=== PATIENT | male | born 1990 | race Caucasian/White ===

== ENCOUNTER 2017-03-26 19:05 | Emergency (ER) | payer OTHER ==
[~2017-03-26] VITALS: Ht 167.6 cm; Wt 76.9 kg
[~2017-03-26 19:05] MED LIST: INSDGI SQ; LISI-729 PO; NVLGI SQ
[2017-03-26 19:14] VITALS: BP 134/89; TEMP 36.9; Ht 167.6 cm; Wt 76.9 kg
[2017-03-26] MEDS ORDERED: INSU100I SC (19:36)
[2017-03-26] MEDS ORDERED: INSDGI SC (19:36)
[2017-03-26] MEDS ORDERED: XYLOCAINE 1%/SOD BICARB 20 ML VIAL INFIL STA (19:43)
[2017-03-26] MEDS ORDERED: BUPIVACAINE 0.5 % 5 MG/1 ML MPF 30ML VIAL INFIL STA (19:43)
--- NOTE | 2017-03-26 20:16 | DIAGNOSTIC IMAGING REPORT ---
RIGHT THIRD FINGER 3 VIEWS CLINICAL HISTORY: Right third finger injury. FINDINGS: 3 views of the right third finger are obtained. No prior studies are available for comparison at the time of dictation. The skeletal structures are well mineralized. There is a comminuted and nondistracted fracture through the distal shaft and tuft of the third distal phalanx with overlying soft tissue edema. There may also be a nondistracted avulsion fracture at the base of the third distal phalanx. This is only seen on the frontal view. The third metacarpophalangeal and interphalangeal joints appear maintained. IMPRESSION: 1. There is a comminuted and nondistracted fracture involving the distal shaft and tuft of the third distal phalanx. 2. Question an additional nondistracted fracture at the base of the third distal phalanx. Electronically signed by: Juan Carlos Silva M.D. 03/26/2017 8:15 PM Dictated Date/Time: 03/26/2017 8:13 PM
[2017-03-26] MEDS ORDERED: OXYC1TAB3 PO (20:57)
[2017-03-26] MEDS ORDERED: CEPH500C PO (20:57)
[2017-03-26] MEDS ORDERED: CEPHALEXIN 500MG HOME PACK 1 EA BTL PO STA (20:57)
[2017-03-26] MEDS ORDERED: OXYCODONE IR HOME PACK PO STA (20:57)
--- NOTE | 2017-03-26 20:59 | EMERGENCY ROOM VISIT NOTE ---
ED Visit Note First contact with patient: 19:22 Chief Complaint: "Smashed/ripped middle finger on right hand". History of Present Illness: This patient is a 27-year-old male who presents to the Emergency Department via private vehicle for evaluation of their right third digit laceration/injury. Patient sustained the laceration while operating a coffee grinder earlier today around 6:45 PM at home. They report a moderate amount of bleeding initially. They admit to any numbness or tingling into the distal extremity. They report deny decreased range of motion of the affected digit. T \\ Patient rates his current discomfort as a 9/10. Patient's Tetanus status is believed to be currently up-to-date. Medications: As noted below Allergies: None PMH: No pertinent SHx: Patient lives locally ROS: All pertinent positive and negative review of systems are appropriately documented in the History of Present Illness. Physical Exam: VITAL SIGNS - Vital signs and nursing notes were reviewed. Stable. GENERAL -27-year-old male appearing his stated age who is in no acute distress. Communicates well with provider and answers questions appropriately. SKIN - There is an avulsion of the skin at the posterior lateral aspect of the cuticle/nail region of the right third digit. No deep laceration noted. No open fracture evident. The edges gape apart with traction. No foreign bodies appreciated. Upon further examination there are no deep structures including vessel, tendon, or bony structures appreciated. There is no active bleeding noted. MUSCULOSKELETAL - Laceration as described above. +5/5 strength appreciated of the affected digit. Full range of motion of the affected digit. NEUROLOGIC - Spinothalamic tract was found to be intact with ability to discriminate sharp versus dull sensation. No sensory defects of the dorsal column were appreciated utilizing light touch for evaluation. VASCULAR - Capillary refill was brisk. IMAGING: RIGHT THIRD FINGER 3 VIEWS CLINICAL HISTORY: Right third finger injury. FINDINGS: 3 views of the right third finger are obtained. No prior studies are available for comparison at the time of dictation. The skeletal structures are well mineralized. There is a comminuted and nondistracted fracture through the distal shaft and tuft of the third distal phalanx with overlying soft tissue edema. There may also be a nondistracted avulsion fracture at the base of the third distal phalanx. This is only seen on the frontal view. The third metacarpophalangeal and interphalangeal joints appear maintained. IMPRESSION: 1. There is a comminuted and nondistracted fracture involving the distal shaft and tuft of the third distal phalanx. 2. Question an additional nondistracted fracture at the base of the third distal phalanx. Electronically signed by: Juan Carlos Silva M.D. 03/26/2017 8:15 PM Dictated Date/Time: 03/26/2017 8:13 PM ED Course: Patient was seen and evaluated by myself. Risks and benefits of performing primary wound closure versus no repair were discussed with the patient who verbalizes understanding. Verbal consent was obtained prior to performing the procedure. X-ray was obtained and reveals fracture as noted above. No evidence of open fracture. 4 cc of 50/50 ratio 1% buffered lidocaine and 0.5% bupivacaine was used to perform a digital block of the right third digit. The wound was cleansed and prepped in the typical sterile fashion utilizing normal saline and Betadine. The wound was sterilely draped. Once proper anesthetization was established, the wound was further examined and demonstrated no deep involvement. The wound was copiously irrigated with normal saline and Betadine. No evidence of needing any type of suture closure. An attempt was made to replace the fingernail back under the cuticle edge, but it appears that his skin has been disrupted and removed therefore it is still anatomically aligned. Patient tolerated the procedure well. No complications were met. The wound was cleansed and dressed with a Bacitracin dressing. A metal splint was applied to the finger for comfort. He is to follow with family doctor/orthopedics. Patient educated on worrisome symptoms for return visit to the Emergency Department. Patient discharged to home in good condition. To help prevent infection, and secondary to the nature of the injury he will be given Keflex for infection prophylaxis. He will also be given oxycodone for the fracture pain. In the evaluation and treatment of this patient, the following differential diagnoses were considered: Finger Fracture, Finger Dislocation, Finger Sprain, Finger Contusion, Jersey Finger, or Mallet Finger. In the treatment of this patient controlled medication was utilized and therefore the [facility], Prescription Drug Monitoring Program website was utilized to look up this patient. No concerns were identified that would prohibit or alter my treatment decision. Problem List Medical Problems: (1) Diabetes Status: Chronic Current/Historical Medications Scheduled Cephalexin Monohydrate (Keflex), 500 MG PO TID Insulin Glargine (Lantus), 34 UNITS SC QPM Insulin Lispro (Human) (Humalog), SC UD Lisinopril (Zestril), 5 MG PO QAM Scheduled PRN Oxycodone Ir (Roxicodone Ir), 1-2 TAB PO Q4H PRN for Pain Allergies Coded Allergies: No Known Allergies (Unverified , 03/26/17) Vital Signs Date Time Temp Pulse Resp B/P (MAP) Pulse Ox O2 Delivery O2 Flow Rate FiO2 03/26/17 21:17 79 16 98 03/26/17 19:14 36.9 82 18 134/89 100 Room Air Medications Administered Medications (Trade) Dose Ordered Sig/Gregory Route Start Time Stop Time Status Last Admin Dose Admin Oxycodone HCl (Roxicodone Immediate Rel 5MG Home Pack) 1 homepack UD STAT PO 03/26/17 20:57 03/26/17 20:59 DC 03/26/17 21:05 1 HOMEPACK Cephalexin Monohydrate (Keflex 500MG Home Pack) 1 homepack NOW STAT PO 03/26/17 20:57 03/26/17 20:59 DC 03/26/17 21:04 1 HOMEPACK Departure Information Impression Primary Impression: Laceration Additional Impression: Finger fracture Dispostion Home / Self-Care Condition GOOD Prescriptions Oxycodone Ir (Roxicodone Ir) 5 Mg Tab 1-2 TAB PO Q4H Y for Pain, #15 TAB For Initial Treatment Prov: Segundo Reilly PA-C 03/26/17 Cephalexin Monohydrate (Keflex) 500 Mg Cap 500 MG PO TID for 6 Days, #18 CAP Prov: Segundo Reilly PA-C 03/26/17 Referrals Sonia Abebe (PCP) Dannie Reinoso M.D. Patient Instructions My [facility] Additional Instructions Discharge Instructions: You were seen in the emergency Department for trauma to your right middle finger. There is a fracture of this finger. At this time I do not believe you have an open fracture as we discussed. Please wear the splint for comfort until you follow-up. Please call either your family doctor tomorrow, or the orthopedic number to schedule follow-up as listed. Oxycodone immediate release for pain, but no driving with this. Keflex to help prevent infection. 500 mg every 8 hours. Remainder sent to pharmacy. Proper wound care is essential for adequate wound healing and infection prevention. You can shower and clean the wound with soap and water. Do not scour over the wound, pat dry with a towel. Do not submerse the wound (i.e. bathe or dish wash) until the wound heals. You can use an antibiotic ointment with a dressing over the wound for the next 3-4 days. After this time you may leave the wound dry and open to the air. If crust develops over the wound you can use a Q-tip to apply a 1:1 peroxide:water solution to clean the wound. Look for signs of infection of the wound including: increased pain, swelling, foul discharge, streaking, or increased temperature. If any of these are noticed you should return to the Emergency Department for further assessment and treatment. As with any laceration you may have received nerve damage to the surrounding tissues. This damage may or may not be permanent. You should keep the area covered with sunscreen for the first 6 months to 1 year when at risk for exposure to help minimize scarring. You can also use scar reducing creams or Vitamin E oil to help minimize scarring. For pain control, you can use the following [id number] medicines (if >12 yo): - Regular strength (325mg/tab) Tylenol (acetaminophen) 2 tabs every 4-6 hours as needed. Do not exceed 12 tablets in a 24 hour period. Avoid taking more than 3 grams (3000 mg) of Tylenol per day. This includes any other sources of acetaminophen you may take on a regular basis. - Regular strength (200 mg/tab) Advil (ibuprofen) 1-2 tabs every 4-6 hours as needed. Do not exceed a dose of 3200 mg per day. Return to the emergency department if your symptoms worsen despite treatment course outlined above. Problem Qualifiers
[2017-03-26 21:17] VITALS: PULSE 79; O2SAT 98
== END 2017-03-26 21:19 | disposition home or self-care (01) ==
LOC: C.EDB 19:07 → C.EDD 21:19
DX: S61.312A Laceration without foreign body of right middle finger with damage to nail, initial encounter (principal); S62.662A Nondisplaced fracture of distal phalanx of right middle finger, initial encounter for closed fracture; W22.8XXA Striking against or struck by other objects, initial encounter; E11.9 Type 2 diabetes mellitus without complications; Z79.4 Long term (current) use of insulin; Z79.899 Other long term (current) drug therapy

== ENCOUNTER 2017-03-31 09:09 | Emergency (ER) | payer OTHER ==
[~2017-03-31] VITALS: Ht 167.6 cm; Wt 76.7 kg
[~2017-03-31 09:09] MED LIST changes: +CEPH500C PO; +INSDGI SC; -INSDGI SQ; +INSU100I SC; -NVLGI SQ; +OXYC1TAB3 PO
[2017-03-31 09:18] VITALS: BP 136/74; PULSE 85; TEMP 36.9; O2SAT 98; Ht 167.6 cm; Wt 76.7 kg
--- NOTE | 2017-03-31 09:43 | EMERGENCY ROOM VISIT NOTE ---
History First contact with patient: 09:25 Chief Complaint: FINGER PAIN Stated Complaint: FINGER PAIN History of Present Illness The patient is a 27 year old male who presents to the Emergency Room via private vehicle with complaints of "finger pain". The patient states that he was seen here a few days ago, was diagnosed with a finger fracture was to follow up with orthopedics. Unfortunately he went to try follow-up with them today but was 10 minutes late, and was referred to another specialist, but upon his arrival there they wanted him to change his family doctor. He states that he did not want to change his family doctor therefore came here. He notes no pain, and has no drainage. No signs of infection. There are no fevers. Review of Systems A complete 6-point Review of Systems was discussed with the patient, with pertinent positives and negatives listed in the History of Present Illness. All remaining Review of Systems questions can be considered negative unless otherwise specified. Past Medical/Surgical History Medical Problems: (1) Diabetes Family History Cancer Diabetes mellitus FH: heart disease FH: lung disease Hypertension Kidney disease Kidney stones Seizures Social History Smoking Status: Never Smoker Alcohol Use: none Housing Status: lives with family Occupation Status: employed Current/Historical Medications Scheduled Cephalexin Monohydrate (Keflex), 500 MG PO TID Insulin Glargine (Lantus), 34 UNITS SC QPM Insulin Lispro (Human) (Humalog), SC UD Lisinopril (Zestril), 5 MG PO QAM Scheduled PRN Oxycodone Ir (Roxicodone Ir), 1-2 TAB PO Q4H PRN for Pain Physical Exam Vital Signs Date Time Temp Pulse Resp B/P (MAP) Pulse Ox O2 Delivery O2 Flow Rate FiO2 03/31/17 09:18 36.9 85 18 136/74 98 Room Air Physical Exam VITAL SIGNS - Vital signs and nursing notes were reviewed. Stable. GENERAL -27-year-old male appearing his stated age who is in no acute distress. Communicates well with provider and answers questions appropriately. SKIN - Without rashes. No petechial rashes. Skin overlying the patient's right third digit is showing signs of healing as compared to previous examination. Nail is intact. EXTREMITIES - No clubbing or peripheral cyanosis. No pretibial edema present. + 5/5 strength noted in UE/LE bilaterally. NEUROLOGIC - Cranial nerves II through XII grossly intact. Sensory intact to light touch throughout. Neurovascularly intact in the extremities. Finger shows no drainage. Good Cap refill. Medical Decision & Procedures Medical Decision Patient was seen and evaluated as above. He presents to us today for recheck of his finger. I personally evaluated this patient previously to repair his finger. He is here because he missed the appointment with the other or their group and they want him to change his family doctor. He did not want to do that , and would like to return to work therefore came here. This is a nonwork- related incident. The finger is healing well. Because of the underlying fracture I will have him continue wearing the splint until he follows with a hand specialist. In the event that he would like to change orthopedic doctors, I provided the number for an other orthopedic doctor in the area. He is to return with worsening. Strict precautions were given regarding returning to work. He was educated upon management, educated upon worrisome symptoms which to return, educated upon management, and was discharged home in good condition. It is important to note that his visit here today was not because he had complications, but rather because he wanted to follow-up. In the evaluation and treatment of this patient, the following differential diagnoses were considered: Finger Fracture, Finger Dislocation, Finger Sprain, Finger Contusion, Jersey Finger, or Mallet Finger. Impression Primary Impression: Encounter for re-check of laceration wound Departure Information Dispostion Home / Self-Care Condition GOOD Referrals No Doctor, Assigned (PCP) Chiki Mir MD Patient Instructions My [facility] Additional Instructions You were seen in the emergency Department for recheck of your finger injury. At this time you may return to work, but be careful to as to not reinjured the finger, get this wet or dirty. Please wear the splint until you follow up or are cleared. I recommend calling the hand specialists listed above. Please schedule follow- up with them. Please return with any new/concerning symptoms.
== END 2017-03-31 10:15 | disposition home or self-care (01) ==
LOC: C.EDB 09:11 → C.EDA 10:15
DX: Z09 Encounter for follow-up examination after completed treatment for conditions other than malignant neoplasm (principal); S61.202A Unspecified open wound of right middle finger without damage to nail, initial encounter; X58.XXXA Exposure to other specified factors, initial encounter; E11.9 Type 2 diabetes mellitus without complications; Z79.4 Long term (current) use of insulin; Z79.899 Other long term (current) drug therapy; Z80.9 Family history of malignant neoplasm, unspecified; Z83.3 Family history of diabetes mellitus; Z82.49 Family history of ischemic heart disease and other diseases of the circulatory system; Z84.1 Family history of disorders of kidney and ureter; Z82.0 Family history of epilepsy and other diseases of the nervous system